=== PATIENT | male | born 1990 | race Asian ===

== ENCOUNTER 2017-07-17 19:51 | Emergency (ER) | payer OTHER ==
[2017-07-17] MEDS: NAPROXEN 250 MG TAB PO (23:45)
[2017-07-17] MEDS: METHOCARBAMOL 750 MG TAB PO (23:45)
== END 2017-07-17 23:57 | disposition home or self-care (01) ==
LOC: M ED 19:51
DX: M54.2 Cervicalgia (principal); F17.210 Nicotine dependence, cigarettes, uncomplicated
CPT/HCPCS: 72125